=== PATIENT | female | born 1995 | race Caucasian/White ===

== ENCOUNTER 2019-01-04 18:03 | Emergency (ER) | payer BC, OTHER ==
[2019-01-04 18:16] VITALS: BMI 20.7
--- NOTE | 2019-01-04 18:34 | PDOC ---
History of Present Illness - General History Source: Patient Exam Limitations: No Limitations - History of Present Illness Initial Comments: 01/04/19 18:28 23 yo F h/o DM I, RA previous PVC/s s/p marathon run today, with n/v since the race. states started 10 min following the race. feels urge to defecate but unable to . c/o severe pain, lower abdomen, comes and goes. has had several episodes of nonbloody nonbilious emesis since eipsode. no f/c no urinary complaints.pt has never been in DKA prior. stats her pump was turned down for the race. Meds: plaquenil, methotrexate,and insulin pump for her DM. 01/04/19 19:08 01/04/19 19:09 <Carlene Arredondo - Last Filed: 01/04/19 19:11> <Abhinav Bertrand - Last Filed: 01/05/19 06:20> - General Chief Complaint: Nausea/Vomiting Stated Complaint: N/V Past History - Past Medical History COPD: No Diabetes: Yes (TYPE 1) - Psycho Social/Smoking Cessation Hx Smoking History: Never smoked Have you smoked in the past 12 months: No Information on smoking cessation initiated: No Hx Alcohol Use: No Drug/Substance Use Hx: No <Carlene Arredondo - Last Filed: 01/04/19 19:11> <Abhinav Bertrand - Last Filed: 01/05/19 06:20> - Past Medical History Allergies/Adverse Reactions: Allergies Allergy/AdvReac Type Severity Reaction Status Date / Time cephapirin [From Cefadyl] Allergy Verified 01/04/19 18:10 Home Medications: Ambulatory Orders Folic Acid 1 mg PO DAILY 01/04/19 Hydroxychloroquine Sulfate [Plaquenil] 300 mg PO DAILY 01/04/19 Insulin (LOG) Aspart [NovoLOG -] 1 dose SQ ASDIR 01/04/19 Methotrexate Sodium [Methotrexate] 2.5 mg PO ASDIR 01/04/19 Montelukast Na [Singulair -] 10 mg PO HS 01/04/19 Review of Systems - Review of Systems Constitutional: No: Chills, Diaphoresis, Fever HEENTM: No: Eye Pain, Blurred Vision Respiratory: No: Cough, Orthopnea, Shortness of Breath Cardiac (ROS): No: Chest Pain, Edema, Irregular Heart Rate ABD/GI: Yes: Nausea, Vomiting, Other : No: Burning, Dysuria, Discharge Integumentary: No: Bruising, Change in Color All Other Systems: Reviewed and Negative <Carlene Arredondo - Last Filed: 01/04/19 19:11> *Physical Exam - Vital Signs Last Vital Signs Temp Pulse Resp BP Pulse Ox 97.7 F 87 20 132/87 100 01/04/19 18:04 01/04/19 18:04 01/04/19 18:04 01/04/19 18:04 01/04/19 18:04 - Physical Exam Comments: 01/04/19 19:09 awake alert lungs clear bilat heart rrr no mrg abd soft mild suprapubic ttp. no rebound no guarding. no cva tenderness. ext wwp. no edema. no calf tenderness. nuero alert oriented x 3. <Carlene Arredondo - Last Filed: 01/04/19 19:11> - Vital Signs Last Vital Signs Temp Pulse Resp BP Pulse Ox 96.9 F L 80 17 104/59 L 99 01/04/19 21:15 01/04/19 21:15 01/04/19 21:15 01/04/19 21:15 01/04/19 21:15 <Abhinav Bertrand - Last Filed: 01/05/19 06:20> Heart Score/ECG Review #1 General ECG Interpretation: Normal Rate (88) Compared to previous ECG there are: Other (frequent PVC's, QTC 436 prolonged. trigeminy) <Carlene Arredondo - Last Filed: 01/04/19 19:11> ED Treatment Course - LABORATORY CBC & Chemistry Diagram: 01/04/19 18:45 01/04/19 18:45 <Carleen Arredondo - Last Filed: 01/04/19 19:11> - LABORATORY CBC & Chemistry Diagram: 01/04/19 18:45 01/04/19 18:45 - ADDITIONAL ORDERS Additional order review: Laboratory Results 01/04/19 01/04/19 01/04/19 19:50 19:50 18:45 VBG pH POC VBG pCO2 POC VBG pO2 VBG HCO3 VBG O2 Sat (Paramjit) VBG Base Excess Sodium Potassium Chloride Carbon Dioxide Anion Gap BUN Creatinine Est GFR (CKD-EPI)AfAm Est GFR (CKD-EPI)NonAf POC Glucometer Random Glucose Lactic Acid 2.5 H* Calcium Total Bilirubin AST ALT Alkaline Phosphatase Creatine Kinase Creatine Kinase Index CK-MB (CK-2) Total Protein Albumin Beta HCG, Quant Urine Color Yellow Urine Appearance Clear Urine pH 5.5 Urine Protein 1+ H Urine Glucose (UA) 2+ H Urine Ketones 4+ H Urine Blood Negative Urine Nitrite Negative Urine Bilirubin Negative Urine Urobilinogen 0.2 Ur Leukocyte Esterase Negative Urine RBC 0-2 Urine WBC 2-5 Ur Transition Epith Cell Few Urine Casts Coarse granular 0-1 Urine HCG, Qual Negative 01/04/19 01/04/19 01/04/19 18:45 18:45 18:45 VBG pH POC VBG pCO2 POC VBG pO2 VBG HCO3 VBG O2 Sat (Paramjit) VBG Base Excess Sodium 135 L Potassium 4.1 Chloride 100 Carbon Dioxide 20 L Anion Gap 15 BUN 25.0 H Creatinine 1.3 Est GFR (CKD-EPI)AfAm 66.03 Est GFR (CKD-EPI)NonAf 56.97 POC Glucometer Random Glucose 237 H Lactic Acid Calcium 9.5 Total Bilirubin 0.9 AST 30 ALT 20 Alkaline Phosphatase 66 Creatine Kinase 230 H Creatine Kinase Index 1.3 CK-MB (CK-2) 3.2 Total Protein 7.1 Albumin 4.8 Beta HCG, Quant < 1.0 Urine Color Urine Appearance Urine pH Urine Protein Urine Glucose (UA) Urine Ketones Urine Blood Urine Nitrite Urine Bilirubin Urine Urobilinogen Ur Leukocyte Esterase Urine RBC Urine WBC Ur Transition Epith Cell Urine Casts Urine HCG, Qual 01/04/19 01/04/19 18:45 18:29 VBG pH 7.31 POC VBG pCO2 40.1 POC VBG pO2 < 49 H VBG HCO3 19.3 L VBG O2 Sat (Paramjit) 64.8 L VBG Base Excess -6.1 L Sodium Potassium Chloride Carbon Dioxide Anion Gap BUN Creatinine Est GFR (CKD-EPI)AfAm Est GFR (CKD-EPI)NonAf POC Glucometer 224 Random Glucose Lactic Acid Calcium Total Bilirubin AST ALT Alkaline Phosphatase Creatine Kinase Creatine Kinase Index CK-MB (CK-2) Total Protein Albumin Beta HCG, Quant Urine Color Urine Appearance Urine pH Urine Protein Urine Glucose (UA) Urine Ketones Urine Blood Urine Nitrite Urine Bilirubin Urine Urobilinogen Ur Leukocyte Esterase Urine RBC Urine WBC Ur Transition Epith Cell Urine Casts Urine HCG, Qual 01/04/19 01/04/19 18:45 18:29 RBC 3.85 MCV 99.3 H MCHC 34.0 RDW 13.1 MPV 8.8 Neutrophils % No Result Required. Lymphocytes % No Result Required. POC Glucometer 224 - Medications Given in the ED: ED Medications Discontinued Medications Generic Name Dose Route Start Last Admin Trade Name Cheryl PRN Reason Stop Dose Admin Acetaminophen 1,000 mg 01/04/19 20:48 01/04/19 20:55 Ofirmev Injection - IVPB 01/04/19 20:49 1,000 mg ONCE ONE Administration Metoclopramide HCl 10 mg 01/04/19 20:48 01/04/19 20:50 Reglan Injection - IVPUSH 01/04/19 20:49 10 mg ONCE ONE Administration Sodium Chloride 1,000 ml 01/04/19 18:35 01/04/19 18:37 Normal Saline - IV 01/04/19 18:36 1,000 ml ONCE ONE Administration <Abhinav Bertrand - Last Filed: 01/05/19 06:20> Medical Decision Making - Medical Decision Making 01/04/19 18:33 23 yo F s/p marathon, here with intractable n/v abd pain. differentia prengnacy dehydration uti, obstruction such as volvulus, xray labs lactic. will hydrate, antiemetics. 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 dr. laguerre at [facility]. glucose 240. will r/o dka. or rhabdo since recent marathon. 01/04/19 19:10 signed out to oncoming physician, labs xray possible ct pending labs. 01/04/19 19:10 01/04/19 19:11 <Carlene Arredondo - Last Filed: 01/04/19 19:11> - Medical Decision Making received on signout labs reviewed bun, population health manager, WBC noted plain film read by me: no obstruction, referred to radiology for definitive review abd re-examined multiple times s/p 3LNS nontender, nondistended labs discussed with patient--together we decided not to do CT and not to repeat labs. as she was tolerating PO with nontender abd and only mild pain, patients request for discharge was reasonable bc of large stool volume on plain films, treated with mag citrate 01/05/19 06:18 <Abhinav Bertrand - Last Filed: 01/05/19 06:20> Discharge - Discharge Information Problems reviewed: Yes <Carlene Arredondo - Last Filed: 01/04/19 19:11> - Discharge Information Problems reviewed: Yes <Abhinav Bertrand - Last Filed: 01/05/19 06:20> - Discharge Information Clinical Impression/Diagnosis: Dehydration Condition: Good Disposition: HOME - Patient Discharge Instructions Patient Printed Discharge Instructions: DI for Abdominal Pain-Adult
[2019-01-04] MEDS ORDERED: SODIUM CHLORIDE 0.9% 1000 ML INFUS.BAG IV ONE (18:35)
[2019-01-04 18:58] LABS: HEMATOCRIT 38.3 % (32.4-45.2); MCH 33.7 pg (25.7-33.7); MEAN CELL VOLUME 99.3 fl (80-96); MEAN PLT VOLUME 8.8 fl (7.5-11.1); PLATELET COUNT 302 K/MM3 (134-434); RBC 3.85 M/mm3 (3.60-5.2); RDW 13.1 % (11.6-15.6); WHITE BLOOD COUNT 19.8 K/mm3 (4.0-10.8)
[2019-01-04 19:04] LABS: ALBUMIN 4.8 g/dl (3.4-5.0); BILIRUBIN,TOTAL 0.9 mg/dl (0.2-1); CALCIUM 9.5 mg/dl (8.5-10); CREATININE 1.3 mg/dl (0.55-1.3); POTASSIUM 4.1 mmol/L (3.5-5.1); TOT PROT 7.1 g/dl (6.4-8.2)
[2019-01-04 19:32] LABS: PLATELET ESTIMATE ADEQUATE
[2019-01-04 19:57] LABS: VENOUS PC02 40.1 mmHg (38-52); VENOUS PH 7.31 (7.31-7.41); VENOUS PO2 < 49 mmHg (28-48)
[2019-01-04 20:47] LABS: EPITHELIAL CELLS FEW /hpf
[2019-01-04] MEDS ORDERED: METOCLOPRAMIDE HCL INJECTION 10 MG/2 ML VIAL IVPUSH ONE (20:48)
[2019-01-04] MEDS ORDERED: ACETAMINOPHEN 1000 MG/100 ML VIAL (NON FORMULARY) IVPB ONE (20:48)
[2019-01-04] MEDS ORDERED: ACETAMINOPHEN INJECTION 100 ML IVPB ONE (20:49)
[2019-01-04] MEDS ORDERED: METOCLOPRAMIDE HCL INJECTION 10 MG/2 ML VIAL ONE (20:49)
[2019-01-04 21:24] VITALS: BP 104/59; PULSE 80; TEMP 96.9
[2019-01-04] MEDS ORDERED: MAGNESIUM CITRATE 300 ML BOTTLE PO ONE (22:22)
[2019-01-04] MEDS ORDERED: MAGNESIUM CITRATE 300 ML BOTTLE ONE (22:23)
--- NOTE | 2019-01-05 11:02 | EKG ---
Test Reason : Blood Pressure : / mmHG Vent. Rate : 088 BPM Atrial Rate : 088 BPM P-R Int : 170 ms QRS Dur : 088 ms QT Int : 436 ms P-R-T Axes : 069 070 052 degrees QTc Int : 527 ms SINUS RHYTHM WITH FREQUENT PREMATURE VENTRICULAR COMPLEXES PROLONGED QT ABNORMAL ECG NO PREVIOUS ECGS AVAILABLE Confirmed by PATRICK BUCKLEY, RENETTA ([id number]) on 01/05/2019 11:01:51 AM Referred By: Confirmed By:RENETTA NGUYEN MD
== END 2019-01-04 22:22 | disposition home or self-care (01) ==
LOC: FER 18:03
PROC: 3E033NZ Introduction of Analgesics, Hypnotics, Sedatives into Peripheral Vein, Percutaneous Approach (ICD-10-PCS; principal; 2019-01-04)
PROC: 3E0337Z Introduction of Electrolytic and Water Balance Substance into Peripheral Vein, Percutaneous Approach (ICD-10-PCS; 2019-01-04)
PROC: 3E033GC Introduction of Other Therapeutic Substance into Peripheral Vein, Percutaneous Approach (ICD-10-PCS; 2019-01-04)
DX: E86.0 Dehydration (principal); E10.9 Type 1 diabetes mellitus without complications; M06.9 Rheumatoid arthritis, unspecified; I49.3 Ventricular premature depolarization; I45.81 Long QT syndrome; Z80.8 Family history of malignant neoplasm of other organs or systems
CPT/HCPCS: 36415; 74021-TC-FY; 80053; 81003; 81015; 82010; 82550; 82553; 82803; 82962; 83605; 84702; 84703; 85025; 93005; 99285-25; J0131; J7030